=== PATIENT | male | born 1975 | race Caucasian/White ===

== ENCOUNTER 2023-06-15 19:10 | Inpatient (IN) | payer SELFPAY ==
[2023-06-15 20:05] VITALS: BP 123/82; PULSE 109; RESP 18; TEMP 37; O2SAT 98
[2023-06-15] MEDS: OLANZapine 10 MG TABLET PO (21:20)
[2023-06-15 23:00] VITALS: BMI 26.8
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
[2023-06-16 08:23] VITALS: BP 114/74; PULSE 96; RESP 18; TEMP 36.9; O2SAT 98
[2023-06-16 09:45] LABS: Estimated Average Glucose 108 mg/dL; Hemoglobin A1c % 5.4 % (<6.0)
[2023-06-16 10:03] LABS: Cholesterol 193 mg/dL (<200); HDL Cholesterol 58 mg/dL (>40); LDL Cholesterol Calculated 115 mg/dL (<100); Magnesium 2.5 mg/dL (1.6-2.6); Triglycerides 104 mg/dL (<150)
[2023-06-16 10:16] LABS: Free T4 (Free Thyroxine) 0.97 ng/dL (0.71-1.85); Thyroid Stimulating Hormone 1.62 uIU/mL (0.32-4.0)
--- NOTE | 2023-06-16 11:51 | PC.NURSE ---
On 06/14 Pt verbalized intent to put in 3 day notice to leave facility. , ROSANNA, UR aware.
--- NOTE | 2023-06-16 13:25 | HO.PM.IMCN ---
History of Present Illness Data of Consult Service Date: 06/16/23 Primary Care Provider: Unknown Physician HPI Reason for consult: Admission H&P Pt is a 48-year-old male with no known significant PMH not on home medications who is admitted to [facility] psychiat[facility] unit for increasing depression with SI. Patient apparently was found by his son laying in his bedroom breathing in gas fumes a leaf blower in an attempt to commit suicide. Patient apparently had been experiencing increased paranoia and decompensation after left him and filed a restraining order against him. Medical consult for admission H&P. Patient denies any significant PMH though has not seen a PCP in 5+ years. Not on any reported home medications. 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 Did not seek any medical attention for injury. No redness or purulent drainage. Otherwise denies any acute medical complaints at this time. Denies chest pain/pressure, palpitations. No shortness of breath. Denies fever, chills, nausea, vomiting, abdominal pain. No changes to bowel or bladder habits. ?No headache or acute vision changes. Labs reviewed, grossly unremarkable. Vital signs stable. Review of Systems Review of Systems: The patient has no acute medical complaints at this time [facility] Social History Household Members: Children Household Members Other:: Lives with son Housing: House Do you presently have visiting nurse or other home services: No Patient Tobacco Use Status: Never used Tobacco e-Cigarette/Vaping Use: Never Used Patient Interested in Nicotine Replacement: No Second Hand Smoke Exposure: No Use of substances other than those prescribed or required for medical reasons: Yes Substance Use Type: Amphetamines, Crack/Cocaine and Marijuana Substance Use Frequency: Recent Binge Last Used Substance: Unknown Currently Displaying Signs/Symptoms of Drug Intoxication Withdrawal: No Have you been hit, kicked, punched, or otherwise hurt by someone within the past year? If so, by whom?: No Do you feel safe in your current relationship?: No Current Relationship Is there a partner from a previous relationship who is making you feel unsafe now?: No Are you made to feel afraid or neglected: No Advance Directives: No Advance Directives Information Provided: No Do you have thoughts of harming others: None Do you have a plan to hurt others: No Plan Recently lost weight without trying: Unsure Eating poorly because of decreased appetite: No Poor oral hygiene: No Meds Allergies Allergy/AdvReac Type Severity Reaction Status Date / Time Penicillins Allergy Unknown Unknown Verified 06/15/23 17:01 Active Medications: Current Medications Acetaminophen (Acetaminophen 325 Mg Tablet) 650 mg PO Q6H PRN PRN Reason: Headache/Pain Mild Scale (1-3) Al Hydroxide/Mg Hydroxide (Magnesium Hydrox/Alum Hydrox 30 Ml Oral.Susp) 30 ml PO Q6H PRN PRN Reason: Heartburn/Nausea Hydroxyzine HCl (Hydroxyzine Hcl 25 Mg Tablet) 25 mg PO Q6H PRN PRN Reason: Anxiety Lorazepam (Lorazepam 1 Mg Tablet) 1 mg PO Q4H PRN PRN Reason: agitation Magnesium Hydroxide (Milk Of Magnesia 30 Ml Oral.Susp) 30 ml PO DAILY PRN PRN Reason: Constipation Olanzapine (Olanzapine 10 Mg Tablet) 10 mg PO BEDTIME IRVIN Last Admin: 06/15/23 21:20 Dose: 10 mg Olanzapine (Olanzapine 10 Mg Tablet) 10 mg PO BID PRN PRN Reason: violent agitation Trazodone HCl (Trazodone Hcl 50 Mg Tablet) 50 mg PO BEDTIME MRX1 PRN PRN Reason: Insomnia Home Medications ?Medication ?Instructions ?Recorded ?Confirmed ?Last Taken ?Type No Known Home Meds 06/15/23 06/15/23 Unknown History Physical Exam Vital Signs and Narrative: Vital Signs: Last Vital Signs Temp 98.5 F 06/16/23 08:23 Pulse 96 06/16/23 08:23 Resp 18 06/16/23 08:23 BP 114/74 06/16/23 08:23 Pulse Ox 98 06/16/23 08:23 O2 Del Method Room Air 06/16/23 08:23 BMI result Body Mass Index 26.8 General: AOx3, no acute distress Resp: CTA bilaterally CVS: S1, S2, RRR GI: +BS, NT, no distention Skin: Warm, dry Neuro: Cranial nerves II-XII grossly intact bilaterally. Motor grossly intact bilaterally Extremities: No edema. Approximately 2cm laceration on dorsal aspect of right thumb. No signs of acute infection. No drainage noted. Psych: Appropriate affect Results Labs Labs: Laboratory Results - last 24 hr 06/16/23 09:02 Estimat Average Glucose 108 Hemoglobin A1c % 5.4 Magnesium 2.5 Triglycerides 104 Cholesterol 193 LDL Cholesterol, Calc 115 H HDL Cholesterol 58 Vitamin B12 369 Folate 9.0 TSH 1.62 Free T4 0.97 Assessment and Plan (1) Medical clearance for psychiatric admission: Status: Acute Plan Pt is a 48-year-old male with no known significant PMH not on home medications who is admitted to [facility] unit for increasing depression with SI. Patient apparently was found by his son laying in his bedroom breathing in gas fumes a leaf blower in an attempt to commit suicide. Patient apparently had been experiencing increased paranoia and decompensation after left him and filed a restraining order against him. Medical consult for admission H&P. Mood disorder Plan as per psychiatry Right thumb laceration Occurred during tree work one ago No signs of active infection Keep area clean, dry, and open Pt otherwise has no acute medical complaints or chronic medical conditions. Will sign off for now. Thank you for allowing us to participate in the care of this patient. Please re-consult if any acute issue arises.
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
[2023-06-16 20:00] VITALS: BP 123/59; PULSE 93; RESP 16; TEMP 36.6; O2SAT 95
[2023-06-16] MEDS: OLANZapine 10 MG TABLET PO (21:44)
[2023-06-17 08:00] VITALS: BP 144/77; PULSE 83; RESP 18; TEMP 36.6
--- NOTE | 2023-06-17 19:08 | HO.PSYCHPN ---
Subjective Subjective Date of Service: 06/18/23 Reason For Visit: Major Depressive Disorder, Recurrent episode Subjective Notes: 3 Day Healthcare Proxy: No Guardianship: No Medical Problems Affecting Mental Status: No Interim History: Three day notice to 06/18/23. Met with pt and Gabrielle Justin LCSW. Review of precipitants to admission. Pt denies all SI, plan, intent. Continues to report this was an approach for making a statement to which has recently left. No evidence of psychosis, paranoia. Denies substance overuse, addiction. Wants to return to his job. Pt's son, who lives with pt, feels safe in taking him home. Medication Compliance: No Side effects from medications: No Attending Groups: No Review of Systems Acute medical concerns: No Review of Systems Review of Systems Yes all other systems are reviewed and are negative Mental Status Exam Mental Status Exam Patient Appearance: Appropriate Patient Orientation: Person, Place, Time and Situation Level of Consciousness: Alert Patient Behavior: Talkative, Cooperative, Avoidant and Good Eye Contact Mood Description: Constricted Affect Description: Constricted Patient Cognition Impaired: No Ability to Follow Directions: Good Speech Pattern: Spontaneous Speech Memory Description: Episodic Impaired Hallucinations: None Delusions: Not Present Thought Process: Goal Oriented Thought Content: positive for Goal Oriented Abnormal Motor Activity Signs and Symptoms: Restlessness Judgement: Fair Diagnostics Vital Signs (24Hr): Vital Signs - 24 hr 06/16/23 20:00 06/17/23 08:00 Temperature 97.8 F 98 F Pulse Rate 93 83 Respiratory Rate 16 18 Blood Pressure 123/59 L 144/77 H Pulse Oximetry 95 Oxygen Delivery Method Room Air Room Air BMI result Body Mass Index 26.8 Labs Labs: Laboratory Results - last 48 hr 06/16/23 09:02 Estimat Average Glucose 108 Hemoglobin A1c % 5.4 Magnesium 2.5 Triglycerides 104 Cholesterol 193 LDL Cholesterol, Calc 115 H HDL Cholesterol 58 Vitamin B12 369 Folate 9.0 TSH 1.62 Free T4 0.97 Medications Medications Current Medications Acetaminophen (Acetaminophen 325 Mg Tablet) 650 mg PO Q6H PRN PRN Reason: Headache/Pain Mild Scale (1-3) Al Hydroxide/Mg Hydroxide (Magnesium Hydrox/Alum Hydrox 30 Ml Oral.Susp) 30 ml PO Q6H PRN PRN Reason: Heartburn/Nausea Hydroxyzine HCl (Hydroxyzine Hcl 25 Mg Tablet) 25 mg PO Q6H PRN PRN Reason: Anxiety Lorazepam (Lorazepam 1 Mg Tablet) 1 mg PO Q4H PRN PRN Reason: agitation Magnesium Hydroxide (Milk Of Magnesia 30 Ml Oral.Susp) 30 ml PO DAILY PRN PRN Reason: Constipation Olanzapine (Olanzapine 10 Mg Tablet) 10 mg PO BEDTIME IRVIN Last Admin: 06/16/23 21:44 Dose: 10 mg Olanzapine (Olanzapine 10 Mg Tablet) 10 mg PO BID PRN PRN Reason: violent agitation Trazodone HCl (Trazodone Hcl 50 Mg Tablet) 50 mg PO BEDTIME MRX1 PRN PRN Reason: Insomnia Allergies Allergies Allergy/AdvReac Type Severity Reaction Status Date / Time Penicillins Allergy Unknown Unknown Verified 06/15/23 17:01 Assessment & Plan Assessment & Plan (1) Stimulant use disorder: Status: Acute Code(s): F15.90 - Other stimulant use, unspecified, uncomplicated (2) Alcohol use disorder: Status: Acute Code(s): F10.90 - Alcohol use, unspecified, uncomplicated (3) Major depression: Status: Acute Code(s): F32.9 - Major depressive disorder, single episode, unspecified Plan 48 yo male, history of stimulant use disorder, alcohol use disorder, depression. To ER with police after family found him locked in his room with a running gas leaf blower, attempting to carbon monoxide himself, having cancelled cable and electric for his home. Pt also with paranoia about being listened to by , resulting in destruction of the computer and TV Recent stressors include leaving him and placing a restraining order on him. Pt reports this was an act to make his upset and he meant nothing serious by this. He is worried about having no insurance and not being able to work because he is being held in hospital. Plan: Three day notice Collateral contacts Declines meds Addiction consult 06/17/23: Three day notice to 06/17. Pt to discharge Declines meds, treatment. Informed Consent: understands Reason for continued inpatient stay Substantial Risk for: stable for discharge Time Spent With Patient Time: Total time managing care of this patient today ____ minutes.
[2023-06-17 20:00] VITALS: BP 141/86; PULSE 96; TEMP 36.4; O2SAT 98
--- NOTE | 2023-06-18 13:00 | MHC.RECOVRN ---
Addiction Consult received for education related to cocaine, Adderall, cannabis, alcohol. Pt dc prior to being seen.
--- NOTE | 2023-07-22 15:53 | PM.PSYDC ---
DS: Providers Provider Date of Service: 06/18/23 Date of admission: 06/15/23 19:10 Date of discharge: 06/18/23 Primary care physician: Unknown Physician Attending physician on admission: Dominick Flanagan Consults: 06/15/23 21:10 Consult to Hospitalist Routine Comment: Consulting Provider: Hospitalist Reason For Exam: Transfer pt 06/16/23 19:18 Addiction Medicine Routine Consulting Provider: Addiction Covering Reason for consultation: Education-cocaine,adderall, cannabis, alcohol. Has provider been notified: No Attending physician on discharge: Dominick Flanagan Discharging clinician: Violeta Estrada DS: Diagnosis Discharge Diagnosis (1) Stimulant use disorder: Status: Acute (2) Alcohol use disorder: Status: Acute (3) Major depression: Status: Resolved DS: Medications Discharge Medications Home Medications: Home Medications ?Medication ?Instructions ?Recorded ?Confirmed No Known Home Meds 06/15/23 06/15/23 Mental Status Exam Mental Status Exam Patient Appearance: Appropriate Patient Orientation: Person, Place, Time and Situation Level of Consciousness: Alert Patient Behavior: Talkative, Cooperative, Avoidant and Good Eye Contact Mood Description: Constricted Affect Description: Constricted Patient Cognition Impaired: No Ability to Follow Directions: Good Speech Pattern: Spontaneous Speech Memory Description: Episodic Impaired Hallucinations: None Delusions: Not Present Thought Process: Goal Oriented Thought Content: positive for Goal Oriented Abnormal Motor Activity Signs and Symptoms: Restlessness Judgement: Fair DS: Summary Hospital Course Hospital Course: Admission to adult psychiatry for exacerbation of SI, stimulant and alcohol use and a recent loss of relationship. Pt sent in transfer from [facility] ([place], [place]) where he was sent as family had concern for his safety. He was agitated and they report a need for restraint in their ER. Pt reports he had locked himself in the home with his leaf blower. This appeared to be an attempt to suicide by carbon monoxide. Pt reports this was a joke , an attempt to get back at my for leaving. He reports no suicidality, no plan and signed a three day notice on admit. Team made collateral contact with pt's son who was not concerned for his safety. 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 Status at Discharge Functional status at discharge: independent ambulation Overall status at discharge: patient is back to baseline Time Spent with Patient Time attestation: Total time managing care of this patient today ____ minutes. Discharge Plan Discharge Anticipated Discharge Date/Time: 06/18/23 12:00 Patient Disposition: Home, Self-Care Discharge Diagnosis: Adjustment Reaction with Mixed Features Alcohol Use Disorder Stimulant Use Disorder Referrals: Physician,Ranjeet J [Primary Care Provider] - 1 Week (pt refused PCP appt ) Discharge Medications: No Action No Known Home Meds Discharge Orders: Discharge Order (Routine); Ordered 06/18/23 Ordered By: Violeta Estrada Diet: Regular diet Activity on Discharge: As tolerated Stand Alone Forms: Patient Portal Discharge page, Community Support Print Language: Guatemalan Care Plan Goals: Mood and Behavioral Stabilization Abstain from substance use Health Concerns: Mood and Behavioral Stabilization Substance use Plan of Treatment: Alexis beebe psychotherapy/psychopharmacology referrals Assessment: Discharge on a three day notice of intent. Discharge Date/Time: 06/18/23 11:00
== END 2023-06-18 11:00 | disposition home or self-care (01) | DRG 882 ==
PROVIDERS: Admitting Provider Psychiatry & Neurology Psychiatry; Visit Provider Clinical Nurse Specialist Psychiatric/Mental Health, Adult
DX: F43.25 Adjustment disorder with mixed disturbance of emotions and conduct (principal); R45.851 Suicidal ideations; F32.9 Major depressive disorder, single episode, unspecified; F10.90 Alcohol use, unspecified, uncomplicated; F15.90 Other stimulant use, unspecified, uncomplicated
CPT/HCPCS: 36415; 80061; 82607; 82746; 83036; 83735; 84439; 84443

== ENCOUNTER → 2023-06-15 19:10 | Outpatient (BNV) | payer SELFPAY | PROVIDERS: Admitting Provider Psychiatry & Neurology Psychiatry; Visit Provider Clinical Nurse Specialist Psychiatric/Mental Health, Adult | DX: F33.2 Major depressive disorder, recurrent severe without psychotic features (principal); F10.90 Alcohol use, unspecified, uncomplicated; F15.90 Other stimulant use, unspecified, uncomplicated | CPT/HCPCS: 90792; 99231; 99238 ==

== ENCOUNTER → 2023-06-15 19:10 | Outpatient (BNV) | payer SELFPAY | PROVIDERS: Admitting Provider Psychiatry & Neurology Psychiatry; Visit Provider Student in an Organized Health Care Education/Training Program | DX: Z02.2 Encounter for examination for admission to residential institution (principal) | CPT/HCPCS: 99429 ==